=== PATIENT | male | born 1990 | race Caucasian/White ===

== ENCOUNTER 2016-10-17 14:12 | Emergency (ER) | payer OTHER ==
[2016-10-17 14:16] VITALS: BP 136/66
[2016-10-17] MEDS ORDERED: HYDROcodone/ACETAMIN 5-325 MG* 1 TAB PO ONE (14:47)
--- NOTE | 2016-10-17 14:52 | ED ---
Lower Extremity - HPI Summary HPI Summary: 25 male presents to ED after waking up this morning 10/17/16 with a swollen painful left ankle. Patient states he was highly intoxicated last night and does not remember how he injured it. He states it was around 2:00am last night and he thinks he may have fell down his stairs. Patient states he has been unable to move his ankle without pain and can not walk on it. He is able to stand but can not take any steps and favors his right leg. He tried taking ibuprofen OTC but he states it did not give him any relief. He admits to his left ankle being extremely swollen, but denies bruising, redness or wounds. Denies c/p, difficulty breathing, back pain, neck pain, hip/knee pain and hitting his head. He woke up in his bed. No PMHx and denies any drug abuse. Patient does smoke cigarettes. - History of Current Complaint Hx Obtained From: Patient Mechanism Of Injury: Fall From Height Of: - unknown, he believes he fell down his stairs Onset of Pain: Hours - upon waking up this morning Onset/Duration: Still Present Severity Initially: Moderate Severity Currently: Severe - with any movement and upon weight bearing Pain Intensity: 10 Pain Scale Used: 0-10 Numeric Timing: Constant Location: Is Discrete @ - left lateral ankle and lower leg Character Of Pain: Sharp, Aching, Throbbing, Stiffness Associated Signs And Symptoms: Positive: Swelling. Negative: Redness, Bruising , Fever, Knee Pain Aggravating Factor(s): Standing, Ambulation, Movement, Weight Bearing Alleviating Factor(s): Rest, Ice Able to Bear Weight: No - due to pain, favors right leg <Katheryn Salvador - Last Filed: 10/17/16 17:35> <Johny Luna - Last Filed: 10/17/16 20:32> - History of Current Complaint Chief Complaint: EDExtremityLower Stated Complaint: LEFT FOOT INJURY Time Seen by Provider: 10/17/16 14:28 - Allergies/Home Medications Allergies/Adverse Reactions: Allergies Allergy/AdvReac Type Severity Reaction Status Date / Time No Known Allergies Allergy Verified 10/17/16 14:14 PMH/Surg Hx/FS Hx/Imm Hx Cardiovascular History: Denies: Hx Hypertension Respiratory History: Denies: Hx Asthma Musculoskeletal History: Reports: Hx Orthopedic Injury - past ankle sprains Infectious Disease History: No Infectious Disease History: Denies: Traveled Outside the [place] in Last 30 Days - Family History Known Family History: Positive: None - Social History Alcohol Use: Daily Substance Use Type: Reports: Marijuana Smoking Status (MU): Heavy Every Day Tobacco Smoker <Katheryn Salvador - Last Filed: 10/17/16 17:35> Review of Systems Constitutional: Negative Eyes: Negative ENT: Negative Cardiovascular: Negative Respiratory: Negative Gastrointestinal: Negative Genitourinary: Negative Positive: Arthralgia - left ankle, Myalgia - left ankle , Decreased ROM - left ankle, Edema - left ankle Skin: Negative Neurological: Negative Negative: Weakness, Numbness Psychological: Normal All Other Systems Reviewed And Are Negative: Yes <Katheryn Salvador - Last Filed: 10/17/16 17:35> Physical Exam Triage Information Reviewed: Yes Vital Signs On Initial Exam: Initial Vitals Temp Pulse Resp BP Pulse Ox 97.3 F 136 16 136/66 98 10/17/16 14:14 10/17/16 14:14 10/17/16 14:14 10/17/16 14:14 10/17/16 14:14 HR was rechecked during exam by me and was 96. patient was hopping on one foot into the triage room and was probably increased due to that. Vital Signs Reviewed: Yes Appearance: Positive: Well-Appearing, Well-Nourished, Pain Distress Skin: Positive: Warm, Skin Color Reflects Adequate Perfusion - cap refill <2 seconds, Dry Head/Face: Positive: Normal Head/Face Inspection Eyes: Positive: Normal ENT: Positive: Hearing grossly normal Neck: Positive: Supple, Nontender Respiratory/Lung Sounds: Positive: Clear to Auscultation, Breath Sounds Present Cardiovascular: Positive: Normal, RRR, Pulses are Symmetrical in both Upper and Lower Extremities - pedal and radial pulses 3+ Musculoskeletal: Positive: Limited @ - left ankle with flexion extension internal and external rotation due to pain., Abnormal @ - left ankle deformity unable to tell if it is just from edema or possible fracture. No step-off noted. unable to determine crepitus due to edema and pain, Pain @ - left lateral ankle around the lateral malleolus and around the area of anterior/ posterior talofibular and tibiofibular ligaments. Pain on palpation of lateral lower leg/fibula. Moderate amount of swelling in these areas, no ecchymosis or erythema noted. Strength 3/5 due to pain. Sensory and reflexes intact. pedal pulses 3+. Right ankle/foot normal. No pain on palpation of left foot. Able to move toes without pain. Cap refill <2sec. Suarez test normal., Edema Left. Negative: Jenny Sign Left, Jenny Sign Right Neurological: Positive: Normal, Sensory/Motor Intact - both before and after splint application. circulation also 3+ before and after splint application., Alert, Oriented to Person Place, Time, CN Intact II-III, Reflexes Intact, NV Bundle Intact Distally, Unable to Assess Gait Psychiatric: Positive: Normal <Katheryn Salvador - Last Filed: 10/17/16 17:35> Vital Signs On Initial Exam: Initial Vitals Temp Pulse Resp BP Pulse Ox 97.3 F 136 16 136/66 98 10/17/16 14:14 10/17/16 14:14 10/17/16 14:14 10/17/16 14:14 10/17/16 14:14 <Johny Luna - Last Filed: 10/17/16 20:32> Procedures - Splinting Location: left lower leg/ankle Hand-Made Type: plaster Splint: posterior walking - + sugar tong/stirrup splint Pre-Proc Neuro Vasc Exam: normal Post-Proc Neuro Vasc Exam: normal <Katheryn Salvador - Last Filed: 10/17/16 17:35> Diagnostics - Vital Signs Vital Signs Temp Pulse Resp BP Pulse Ox 10/17/16 14:14 97.3 F 136 16 136/66 98 - Radiology lower leg x-ray Xray Interpretation: Positive (See Comments) - Distal Galindo type B lateral malleolus fracture as described in the dedicated ankle report. Negative for additional fracture of the fibula or tibia. Based on correlation with the ankle radiographs there is slight widening of the ankle mortise. Normal proximal tibia fibula alignment. Distal lateral soft tissue swelling. Radiology Interpretation Completed By: Radiologist left ankle x-ray Xray Interpretation: Positive (See Comments) Radiology Interpretation Completed By: Radiologist - Oblique fracture through the distal metaphysis of the fibula terminating inferiorly at the level of the ankle mortise with up to one cortex width posterior displacement. Only slight widening of the ankle mortise. Negative for additional fracture. Talocrural joint effusion. Severe soft tissue swelling over the lateral malleolus. IMPRESSION: Galindo type B lateral malleolus fracture pattern. <Katheryn Salvador - Last Filed: 10/17/16 17:35> - Vital Signs Vital Signs Temp Pulse Resp BP Pulse Ox 10/17/16 14:14 97.3 F 136 16 136/66 98 <Johny Luna - Last Filed: 10/17/16 20:32> Re-Evaluation - Re-Evaluation First Eval Re-Evaluation Time: 15:40 Change: Improved - some improvement after pain management and ice <Katheryn Salvador - Last Filed: 10/17/16 17:35> Lower Extremity Course/Dx - Course Course Of Treatment: Patient was given ice and pain management for ankle. X-ray of left ankle and lower leg were taken. Left distal fibular fracture seen. A posterior and sugar tong splint was applied. Circulation, sensation and motor intact after splint application. Patient will be sent home with orthopedic referral, pain management and crutches. Patient is aware of signs of compartment syndrome and if the splint becomes to tight to return to ED immediately. - Diagnoses Differential Diagnosis/HQI/PQRI: Positive: Contusion, Dislocation, Fracture ( Closed), Sprain, Strain - Physician Notifications Discussed Care of Patient With: Dr Luna and Angel Morataya <Katheryn Salvador - Last Filed: 10/17/16 17:35> <Johny Luna - Last Filed: 10/17/16 20:32> - Diagnoses Provider Diagnoses: Fracture of distal end of left fibula Discharge <Katheryn Salvador - Last Filed: 10/17/16 17:35> <Johny Luna - Last Filed: 10/17/16 20:32> - Discharge Plan Condition: Stable Disposition: HOME Prescriptions: Ibuprofen TAB* [Motrin TAB* 600 MG] 600 mg PO Q6H PRN #30 tab PRN Reason: Pain oxyCODONE/Acetamin 5/325 MG* [Percocet 5/325 TAB*] 1 tab PO Q6H PRN #14 tab MDD 4 PRN Reason: Pain Patient Education Materials: Ankle Fracture (ED), Leg Fracture (ED), Ankle Stirrup Splint (ED) Forms: *Work Release Referrals: [facility] [Outside] Che Patel MD [Medical Doctor] - Additional Instructions: Elevate your left leg as much as possible as it is important for swelling and pain. Use prescribed medication every three times a day as needed for pain. Take medication with food as it can cause an upset stomach. Only take as needed. Call Orthopedics to make an appointment tomorrow for further evaluation. No physical activity and non weight bearing. Use crutches. If symptoms worsen or splint becomes to tight with signs of redness, swelling, numbness, or cold please return to ED immediately.
--- NOTE | 2016-10-17 16:02 | RAD ---
Indication: Lateral LEFT ankle pain and swelling post fall yesterday. Comparison: None. Technique: AP, mortise, and lateral views LEFT ankle. Report: Oblique fracture through the distal metaphysis of the fibula terminating inferiorly at the level of the ankle mortise with up to one cortex width posterior displacement. Only slight widening of the ankle mortise. Negative for additional fracture. Talocrural joint effusion. Severe soft tissue swelling over the lateral malleolus. IMPRESSION: Galindo type B lateral malleolus fracture pattern.
--- NOTE | 2016-10-17 16:04 | RAD ---
Indication: Pain LEFT ankle and leg post fall. Comparison: Ankle of the same date. Technique: AP and lateral views LEFT lower leg. REPORT AND IMPRESSION: Distal Galindo type B lateral malleolus fracture as described in the dedicated ankle report. Negative for additional fracture of the fibula or tibia. Based on correlation with the ankle radiographs there is slight widening of the ankle mortise. Normal proximal tibia fibula alignment. Distal lateral soft tissue swelling.
--- NOTE | 2016-10-17 20:31 | ED ---
Anat Myrick Erika, scribed for Johny Luna MD on 10/17/16 at 1522 . Progress - Progress Note Progress Note: Consulting on patient for DANK Quiñonez. Patient is a 25 y/o M presenting to the ED with a CC of constant left ankle pain. He reports that he was "very drunk" last night but believes he fell down some stairs. He noticed the pain when he woke up this morning. He is unsure of the exact TAMIKA. Pt denies left foot pain and left atkins pain. Physical Exam: Pt appears intoxicated and smells of alcohol. Pt appears to be in mild distress. Left lower extremity exam: Pain at the distal fibula. Tenderness over the distal fibula. Marked swelling over the lateral malleolus. Tenderness over the deltoid ligament. No tenderness over the 5th metatarsal. No tenderness over the knee. No tenderness over the proximal tibia or fibula. No step offs or deformity. Skin intact. Full ROM. Good pulses. Please refer to note by DANK Quiñonez for further information. Re-Evaluation - Re-Evaluation First Eval Re-Evaluation Time: 15:40 Change: Improved - some improvement after pain management and ice Course/Dx - Diagnoses Provider Diagnoses: Fracture of distal end of left fibula The documentation as recorded by the Anat de la fuente Erika accurately reflects the service I personally performed and the decisions made by , Johny Luna MD.
== END 2016-10-17 17:50 | disposition home or self-care (01) ==
LOC: ED 14:12
PROC: 2W3RX1Z Immobilization of Left Lower Leg using Splint (ICD-10-PCS; principal; 2016-10-17)
DX: S82.832A Other fracture of upper and lower end of left fibula, initial encounter for closed fracture (principal); W10.9XXA Fall (on) (from) unspecified stairs and steps, initial encounter; Y92.9 Unspecified place or not applicable; F17.210 Nicotine dependence, cigarettes, uncomplicated
CPT/HCPCS: 99282

== ENCOUNTER → 2017-02-28 02:05 | Emergency (ER) | payer OTHER ==
[~2017-02-28 02:05] MED LIST: Mouth Piece, Nicotine* 1 EACH CARTRIDGE INH ONE; Mouth Piece, Nicotine* 1 EACH CARTRIDGE INH PRN; Mouth Piece, Nicotine* 1 EACH CARTRIDGE ONE; Nicotine Inhaler* 10 MG AMP INH ONE; Nicotine Inhaler* 10 MG AMP ONE
[2017-02-28 02:39] VITALS: BP 132/79
--- NOTE | 2017-02-28 06:07 | ED ---
Anat Myrick Erika, scribed for Jonathan Ortez MD on 02/28/17 at 0257 . Substance Abuse/Use - HPI Summary HPI Summary: Patient is a 26-year-old male presenting to the ED as a 2208. Per EMS, pt was found lying on the street at [place] and [place] intoxicated. Pt notes right 5th finger pain, but declines XR. LEVEL 5 CAVEAT - AMS. - History Of Current Complaint Stated Complaint: 2208 Time Seen by Provider: 02/28/17 02:06 Hx Obtained From: EMS Hx From Patient Unobtainable Due To: Altered Mental Status Ingestion History: Type/Name Of Drug - EtOH Severity Currently: Moderate - Allergies/Home Medications Allergies/Adverse Reactions: Allergies Allergy/AdvReac Type Severity Reaction Status Date / Time No Known Allergies Allergy Verified 10/17/16 14:14 PMH/Surg Hx/FS Hx/Imm Hx Cardiovascular History: Denies: Hx Hypertension Respiratory History: Denies: Hx Asthma Musculoskeletal History: Reports: Hx Orthopedic Injury - past ankle sprains - Family History Known Family History: Positive: Unknown - LEVEL 5 CAVEAT - AMS - Social History Alcohol Use: Daily Hx Substance Use: Yes Substance Use Type: Reports: Marijuana Hx Tobacco Use: Yes Smoking Status (MU): Heavy Every Day Tobacco Smoker Review of Systems - ROS Summary Review of Systems Summary: LEVEL 5 CAVEAT - AMS Positive: Arthralgia - R 5th finger Neurological: Other - Intoxicated All Other Systems Reviewed And Are Negative: No Physical Exam Triage Information Reviewed: Yes Vital Signs On Initial Exam: Initial Vital Signs Temp 97.4 F 02/28/17 02:37 Pulse 85 02/28/17 02:37 Resp 16 02/28/17 02:37 BP 132/79 02/28/17 02:37 Pulse Ox 97 02/28/17 02:37 Vital Signs Reviewed: Yes Completion Of Physical Exam Limited Due To: Altered Mental Status, Level 5 Appearance: Positive: Well-Appearing Skin: Positive: Warm Head/Face: Positive: Normal Head/Face Inspection Eyes: Positive: RISHI ENT: Positive: Hearing grossly normal Neck: Positive: Supple Respiratory/Lung Sounds: Positive: Breath Sounds Present Cardiovascular: Positive: RRR Abdomen Description: Positive: Nontender, Soft Bowel Sounds: Positive: Present Musculoskeletal: Positive: Strength/ROM Intact Neurological: Positive: Alert, Oriented to Person Place, Time Diagnostics - Vital Signs Vital Signs Temp Pulse Resp BP Pulse Ox 02/28/17 02:37 97.4 F 85 16 132/79 97 - Laboratory Lab Results: Lab Results 02/28/17 Range/Units 03:44 Serum Alcohol 405 H* (<10) mg/dL Lab Statement: Any lab studies that have been ordered have been reviewed, and results considered in the medical decision making process. Course/Dx - Course Assessment/Plan: Pt presents as a 2209. Serum alcohol 405. Pt is observed in the ED and will be discharged home once sober. - Diagnoses Provider Diagnoses: Alcohol intoxication Discharge - Discharge Plan Condition: Stable Disposition: HOME Patient Education Materials: Alcohol Intoxication (ED) Referrals: [facility] [Outside] - 2 Days The documentation as recorded by the Anat de la fuente Erika accurately reflects the service I personally performed and the decisions made by , Jonathan Ortez MD.
--- NOTE | 2017-02-28 11:57 | RAD ---
HISTORY: Right hand pain, subacute trauma COMPARISONS: None VIEWS: 2, Frontal and lateral views of the right hand FINDINGS: BONE DENSITY: Normal. BONES: There is no displaced fracture. JOINTS: There is no arthropathy. ALIGNMENT: There is no dislocation. SOFT TISSUES: Unremarkable. OTHER FINDINGS: None. IMPRESSION: NO ACUTE OSSEOUS INJURY. IF SYMPTOMS PERSIST, RECOMMEND REPEAT IMAGING.
== END | disposition home or self-care (01) ==
LOC: ED 02:05
DX: F10.129 Alcohol abuse with intoxication, unspecified (principal); Y90.8 Blood alcohol level of 240 mg/100 ml or more; R41.82 Altered mental status, unspecified
CPT/HCPCS: 36415; 80320; 99283; A9270-GY; G0480

== ENCOUNTER 2018-08-31 07:51 | Emergency (ER) | payer OTHER ==
[2018-08-31 08:03] VITALS: BP 147/92
--- NOTE | 2018-08-31 08:16 | UC ---
Laceration HPI - HPI Summary HPI Summary: Patient presents to urgent care with a laceration to his left fifth finger. Patient states yesterday at work he was cutting fruit with a very sharp knife when he sliced his finger. Patient states he put a pressure bandage on bleeding stopped. Patient states this morning he took off the bandage and he started to breathe heavily. Patient states his tetanus was 2 years old. Patient is not immunocompromised. Patient is not on any blood thinners. Patient denies paresthesia. No weakness Pt here because "keeps bleeding and girlfriend said I should." Pt RHD Pt's medications reviewed this visit - History Of Current Complaint Chief Complaint: UCLaceration Stated Complaint: WC FINGER LAC Time Seen by Provider: 08/31/18 08:16 Hx Obtained From: Patient Laceration Location: Finger Mechanism Of Injury: Sharp Trauma Onset/Duration: Sudden Onset Severity: Moderate Pain Intensity: 7 Pain Scale Used: 0-10 Numeric - Allergies/Home Medications Allergies/Adverse Reactions: Allergies Allergy/AdvReac Type Severity Reaction Status Date / Time No Known Allergies Allergy Verified 08/31/18 08:03 Home Medications: Home Medications Ibuprofen TAB* [Motrin TAB* 600 MG] 400 mg PO Q6H PRN 08/31/18 [History Confirmed 08/31/18] PMH/Surg Hx/FS Hx/Imm Hx Previously Healthy: Yes - Surgical History Surgical History: None - Family History Known Family History: Positive: Non-Contributory - Social History Occupation: Employed Full-time Lives: With Family Alcohol Use: Daily Alcohol Amount: 3-4 beers Substance Use Type: None Smoking Status (MU): Heavy Every Day Tobacco Smoker Amount Used/How Often: 1 PPD - Immunization History Most Recent Tetanus Shot: 2016 Review of Systems All Other Systems Reviewed And Are Negative: Yes Constitutional: Positive: Negative Skin: Positive: Other - laceration left Physical Exam - Summary Physical Exam Summary: Vital Signs Reviewed: Yes A+Ox3, no distress Eyes: Conjunctiva Clear ENT: Hearing grossly normal neck: supple Respiratory: Positive: No respiratory distress, No accessory muscle use Cardiovascular: skin color reflect adequate perfusion, CBT <2 sec Musculoskeletal Exam: ABDULLAHI: + flex/ext elbow, wrist, 5th MCP, PIP, DIP without difficulty or weakness Neurological: Positive: Alert, ambulatory without difficulty, + gross sensation throughout finger tip Psychological: Positive: Normal Response To Family Skin: Positive: no rash, no ecchymosis. Pt with 1.5cm wedge shaped skin defect/ avulsion volar aspect left 5th digit from pad to mid finger active bleeding Triage Information Reviewed: Yes Vital Signs: Initial Vital Signs Temp 97.7 F 08/31/18 07:57 Pulse 88 08/31/18 07:57 Resp 14 08/31/18 07:57 BP 147/92 08/31/18 07:57 Pulse Ox 98 08/31/18 07:57 Laceration Repair - Laceration Repair 1 Procedure Summary: Pt with 1.5cm wedge avulsion defect volar aspect left 5th digit - not suturable given to avulsive nature wound covered with gelfoam, 2x2 and tube gauze. Bleeding controlled d/w pt wound care elevate work note Irrigation With Pressure Irrigation Device: No Laceration Course/Dx - Course/Dx Course Of Treatment: Pt presents with a 1.5cm wedge avulsion left, non dominant 5th digit - volar aspect - from knife at work last evening. unable to suture given avulsive nature. wound cleansed, gel foam, pressure tube gauze. elevate. wound care - bandage x 36 hour. motrin/apap. clean and dry. [facility] forms completed. f/u with [facility]. Pt comfortable and in agreement with plan. BP elevated - pt recommended f/u with pcp - Diagnosis Provider Diagnosis: Skin avulsion Discharge - Sign-Out/Discharge Documenting (check all that apply): Patient Departure All imaging exams completed and their final reports reviewed: No Studies - Discharge Plan Condition: Stable Disposition: HOME Patient Education Materials: Skin Avulsion (ED) Forms: *Gen. Provider Communication, *Work Release Referrals: James Espinoza MD [Medical Doctor] - No Primary Care Phys,NOPCP [Primary Care Provider] - Additional Instructions: - Leave bandage in place for at least 24 hours - 36-48 hours is preferred. Your bandage should stay dry leave the foam sponge on your wound and change the outer bandages tomorrow or Monday - Contact Dr. Espinoza, Occupational medicine doctor today to schedule a follow-up appointment on Monday - to alternate ibuprofen (Advil, Motrin) and tylenol every 3 hours for pain - elevate your hand - keeping your little finger upwards to help with swelling, pain and bleeding - if you start bleeding, apply direct pressure and for 10 minutes - Contact Dr. Espinoza, your doctor, or return here with questions or concerns - Billing Disposition and Condition Condition: STABLE Disposition: Home
[2018-08-31] MEDS ORDERED: Gelfoam 12-7 ADSORBABL SPONGE* 1 EA SPONGE TOPICAL ONE (08:19)
== END 2018-08-31 08:40 | disposition home or self-care (01) ==
LOC: UCEAST 07:51
DX: S61.217A Laceration without foreign body of left little finger without damage to nail, initial encounter (principal); W26.0XXA Contact with knife, initial encounter; Y93.G1 Activity, food preparation and clean up; Y92.9 Unspecified place or not applicable; Y99.0 Civilian activity done for income or pay; F17.200 Nicotine dependence, unspecified, uncomplicated
CPT/HCPCS: 99211; A9270-GY; G0463